=== PATIENT | female | born 1990 | race Caucasian/White ===

== ENCOUNTER 2018-08-09 15:52 | Emergency (ER) | payer OTHER ==
[2018-08-09 15:59] VITALS: BP 107/61
--- NOTE | 2018-08-09 16:33 | ED Physician Documentation ---
PD HPI ABD PAIN - Stated complaint Stated Complaint: [id number] OB - Chief complaint Chief Complaint: Trauma Abd - History obtained from History obtained from: Patient - History of Present Illness Timing - onset: Today (This is a at 23 weeks gestation, sure of her dates who fell onto her right side, a ground-level fall. No cramping or bleeding but did not feel motion for a while. No other major injuries, she has a scrape on her elbow and knee.) Review of Systems Constitutional: reports: Reviewed and negative Nose: reports: Reviewed and negative Throat: reports: Reviewed and negative Cardiac: reports: Reviewed and negative PD PAST MEDICAL HISTORY - Past Medical History Cardiovascular: None Respiratory: None Endocrine/Autoimmune: None GI: Chronic diarrhea, Cholelithiasis : None HEENT: Chronic vision loss Psych: None Musculoskeletal: None Derm: None - Past Surgical History General: Cholecystectomy - Present Medications Home Medications: Ambulatory Orders Medication Instructions Recorded Confirmed No Known Home Medications 08/18/17 08/09/18 - Allergies Allergies/Adverse Reactions: Allergies Allergy/AdvReac Type Severity Reaction Status Date / Time No Known Drug Allergies Allergy Verified 08/09/18 15:58 PD ED PE NORMAL - Vitals Vital signs reviewed: Yes - General General: Alert and oriented X 3, No acute distress - HEENT HEENT: PERRL, EOMI - Neck Neck: Supple, no meningeal sign, No bony TTP - Cardiac Cardiac: RRR, No murmur - Respiratory Respiratory: No respiratory distress, Clear bilaterally - Abdomen Abdomen: Normal bowel sounds, Soft, Non tender - Female Female : Other (Bedside pelvic sono shows Single live IUP with positive motion and a heart rate of 154.) - Extremities Extremities: No edema, No calf tenderness / cord, Other (There is a little scrape on the elbow, but no tenderness or limited range of motion, no tenderness of the right knee.) - Neuro Neuro: Alert and oriented X 3, Normal speech Results - Vitals Vitals: Vital Signs - 24 hr 08/09/18 15:56 Temperature 36.5 C Heart Rate 73 Respiratory 18 Rate Blood Pressure 107/61 O2 Saturation 100 Oxygen O2 Source Room air PD MEDICAL DECISION MAKING - ED course ED course: Case discussed by phone with on-call OB, Dr. Gaspar, we agree that given the gestational age there is no need or indication for prolonged monitoring. Departure - Departure Disposition: Home, Self Care Clinical Impression: Qualifiers: Weeks of gestation: 23 weeks Qualified Code(s): Z3A.23 - 23 weeks gestation of Abdominal contusion Qualifiers: Encounter type: initial encounter Qualified Code(s): S30.1XXA - Contusion of abdominal wall, initial encounter Condition: Good Record reviewed to determine appropriate education?: Yes Instructions: ED Contusion Soft Tissue
== END 2018-08-09 16:46 | disposition home or self-care (01) ==
LOC: ED 15:52
DX: O26.892 Other specified pregnancy related conditions, second trimester (principal); S30.1XXA Contusion of abdominal wall, initial encounter; S80.219A Abrasion, unspecified knee, initial encounter; W18.30XA Fall on same level, unspecified, initial encounter; Z3A.23 23 weeks gestation of pregnancy
CPT/HCPCS: 99283